=== PATIENT | male | born 1995 | race African-American/Black ===

== ENCOUNTER 2019-01-22 15:53 | Emergency (ER) | payer OTHER, SELFPAY | END 2019-01-22 17:14 | disposition home or self-care (01) | LOC: ERS 15:53 | DX: S61.451A Open bite of right hand, initial encounter (principal); G43.909 Migraine, unspecified, not intractable, without status migrainosus; W54.0XXA Bitten by dog, initial encounter | CPT/HCPCS: 99283 ==